=== PATIENT | female | born 1980 | race Caucasian/White ===

== ENCOUNTER 2020-11-08 09:48 | Emergency (ER) | payer OTHER, SELFPAY ==
[2020-11-08] VITALS (20 sets, daily range): BP systolic 101–124; BP diastolic 58–91; PULSE 67–95; RESP 13–24; TEMP 36.2; O2SAT 94–100
--- NOTE | ~2020-11-08 | CT_ITS ---
EXAMINATION: CT brain wo con DATE: 11/08/2020 10:20 INDICATION: Altered mental status TECHNIQUE: Computed tomography (CT) of the head was performed without intravenous contrast. The mA wa s adjusted according to patient size. Iterative reconstruction technique was employed. Exam dose: 60 5.33 mGy-cm total exam DLP. COMPARISON: None FINDINGS: No intracranial mass lesion or hemorrhage or cerebrovascular accident. No midline shift or mass effect. Normal ventricular size. No midline shift or mass effect. No subdural or epidural h ematoma. No skull fracture or bone destruction. IMPRESSION: No significant abnormality Reviewed, dictated and finalized at [facility]. Reviewed, dictated and finalized at location [facility]. CAPTURE SPECIALIST IMPRESSION: No significant abnormality
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
--- NOTE | 2020-11-08 10:05 | PC.NURSE ---
Pt unresponsive to all stimuli, preparing to give ammonia inhalant, pt begins wretching, pt rolled to side, mask removed. Pt had emesis large amt of brown liquid. Smells stongly of vanilla. Pt apologizes, continues to vomit. Suction prn. Zofran given IVP and fluids initiated. Pt states is allergic to a medication, but unable to understand her due to slurred speech. Shakes head that is not allergic to zofran prior to giving. Pt to radiology for CT.
[2020-11-08] MEDS: ONDANSETRON INJ 4 MG/2 ML VIAL (10:09)
[2020-11-08] MEDS: SODIUM CHLORIDE 0.9% IV 1,000 ML 999 ML IV CONT (10:09)
--- NOTE | 2020-11-08 10:35 | PC.NURSE ---
Per cardiac tech pt had emesis in CT and again upon returning to room and getting blood drawn. Pt is again unresponsive.
[2020-11-08 10:45] LABS: Basophils Absolute Auto 0.1 K/mm3 (0.0-0.1); Basophils Percent Auto 0.9 % (0.2-1.2); Eosinophils Absolute Auto 0.1 K/mm3 (0-0.3); Eosinophils Percent Auto 0.8 % (0-4.4); Hematocrit 37.7 % (37.0-47.0); Hemoglobin 12.6 g/dL (12.0-15.0); Immature Granulocyte Absolute 0.15 K/mm3 (0.00-0.031); Lymphocytes Absolute Auto 3.49 K/mm3 (0.9-3.2); Lymphocytes Percent Auto 45.6 % (18.3-44.2); Mean Corpuscular HGB Conc 33.4 g/dl (32-36); Mean Corpuscular Hemoglobin 33.6 pg (26-34); Mean Corpuscular Volume 100.5 fl (80-100); Mean Platelet Volume 9.4 fl (7.4-10.4); Monocytes Absolute Auto 0.4 K/mm3 (0.1-0.6); Monocytes Percent Auto 5.5 % (2.6-8.5); Neutrophils Absolute Auto 3.5 K/mm3 (1.3-6.7); Neutrophils Percent Auto 45.2 % (45.5-73.1); Platelet Count Result 328 k/mm3 (150-375); Red Blood Count 3.75 M/mm3 (4.2-5.4); Red Cell Distribution Width 12.5 % (11.5-14.5); White Blood Count 7.7 K/mm3 (4.5-10.0)
[2020-11-08 10:51] LABS: Add Urine Microscopic? YES; Appearance Urine Clear (Clear); Bilirubin Urine Negative (Negative); Blood Urine 1+ (Negative); Color Urine Yellow (Yellow); Glucose Urine UA Negative (Negative); Hyaline Casts Urine 20-29 /lpf; Ketones Urine Trace mg/dL (Negative); Leukocyte Esterase Ur Negative LEU/UL (Negative); Mucus Urine Few /lpf; Nitrate Urine Negative (Negative); Protein Urine 1+ mg/dL (Negative); RBC Urine 0-2 /hpf (0-2); Specific Grav Ur 1.029 (1.001-1.035); Squamous Epithelial Cell Urine Rare /hpf (Few); Urobilinogen Urine Negative mg/dL (<2.0); WBC Urine 0-3 /hpf
[2020-11-08 11:06] LABS: Acetaminophen < 10 ug/mL (10-30); Salicylate < 1.0 mg/dL (2-20)
[2020-11-08 11:07] LABS: Amphetamine Screen Urine Negative (Negative); Barbiturate Screen Urine Negative (Negative); Benzodiazepines Screen Urine Negative (Negative); Cannabinoid Screen Urine Negative (Negative); Cocaine Screen Urine Negative (Negative); Methadone Screen Urine Negative (Negative); Opiate Screen Urine Negative (Negative); Phencyclidine Screen Urine Negative (Negative)
--- NOTE | 2020-11-08 11:20 | PC.NURSE ---
Addendum entered by Rodney Stanton RN 11/08/20 11:49: Pt states that she quit taking all of her medications for depression due to being . States thinks she's been off of them x8 months at least. Original Note: Note snoring respirations, and pt does not wake up to name. Attempt to place #22F nasal trumpet to left nare, and pt awakens to pull it out. Pt is now oriented to name and place, and speech is clearer at this time. Pt asked if she is suicidal, states Oh GOD no and denies suicidal ideations as well. States she is definitely depressed and that she has a problem with alcohol, but that she doesn't drink every day. Pt is not forthcoming on what she took today; however, when asked if all she drank was the vanilla extract, states yes. States that she is 3 wks , and feels that she needs help . Pt intermittently tearful.
[2020-11-08 11:23] LABS: Alanine Aminotransferase 15 U/L (4-35); Albumin Level 3.7 g/dL (3.5-5.1); Alkaline Phosphatase 70 U/L (38-126); Anion Gap 10 mmol/L (8-16); Aspartate Amino Transferase 26 U/L (14-36); Bilirubin,Total 0.3 mg/dL (0.2-1.3); Blood Urea Nitrogen 12 mg/dL (7-17); Calcium 8.1 mg/dL (8.4-10.2); Carbon Dioxide 22 mmol/L (22-30); Chloride 113 mmol/L (98-107); Estimated CRCL calculation 88 ml/min; Estimated Glomerular Filt Rate > 60; Glucose 115 mg/dL (65-105); Potassium 3.7 mmol/L (3.4-5.0); Sodium 145 mmol/L (137-145)
[2020-11-08 11:43] LABS: Ethanol 401 mg/dL (<10)
--- NOTE | 2020-11-08 14:14 | PC.NURSE ---
~1221 RECIEVED PHONE CALL FROM DREA LEW STATING HE IS HER SIGNIFICANT OTHER AND INQUIRING TO HOW SHE WAS DOING.PROPELLER [employer]IVEN [employer]PLANE MECHANIC INFORMED HIM SHE SLEEPING. ASKED IF PT HAS ANY MEDICAL HISTORY, DREA STATED SHE HAD A HISTORY OF BIPOLAR DISORDER AND ASSOCIATIVE DISORDER. THIS PROPELLER DRIVEN AIRPLANE MECHANIC INQUIRED IF HE HAND ANY CONCERNS OF PT WANTING TO HARM HERSELF OR IF HE WAS AWARE IF SHE HAD TRIED TO HARM SELF IN THE PAST. DREA STATED HE THOUGHT SHE WAS FINE WHEN SHE LEFT THE HOUSE THIS AM BUT SHE HAS ATTEMPTED TO HANG HERSELF IN THE PAST.
--- NOTE | 2020-11-08 14:20 | PC.NURSE ---
Pt calls out I'm ready to go! . Dr. Campo made aware. States he's not willing to release due to conversation he had with s.o. that reports that pt is possibly suicidal. Pt continues to deny suicidal ideations. States I don't give a FUCK what you say, I'm leaving this place . Pt pulls off monitor leads. Cords removed from room. Dr. Campo and dalton Ochoa made aware.
[2020-11-08 14:37] LABS: Glucose Point of Care 121 (65-105)
--- NOTE | 2020-11-08 14:37 | PC.NURSE ---
Addendum entered by Rodney Stanton RN 11/08/20 15:51: bedside discussing plan of care and need for reevaluation after the patient blood alcohol is normal. Pt loudly yelling at him and crying intermittently. Original Note: Dr. Camop at
--- NOTE | 2020-11-08 14:37 | PC.NURSE ---
Dr. Campo at bedside discussing plan of care. Pt escaltating in angriness, bargaining with Dr. Campo. This RN explained to patient that if she attempts to leave that we will make her come back.
--- NOTE | 2020-11-08 14:50 | PC.NURSE ---
Pt's room made secure and 1:1 siter observation initiated. Security called to stand by due to pt's threats of attempting to leave the facility.
--- NOTE | 2020-11-08 16:12 | PC.NURSE ---
Pt asleep on stretcher. 1:1 sitter observation continues.
--- NOTE | 2020-11-08 16:35 | PC.NURSE ---
Received a call from patient's mother, requesting update. States this similar thing happened after the of her first child. States has an appointment with her psychiatrist on Wednesday. 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 Dr. Campo updated.
--- NOTE | 2020-11-08 17:58 | PC.NURSE ---
Pt up using phone, conversing with staff. Pt is pleasant at the moment.
[2020-11-08 18:32] LABS: Ethanol 265 mg/dL (<10)
--- NOTE | 2020-11-08 18:37 | PC.NURSE ---
Repeat alcohol level drawn as ordered.
--- NOTE | 2020-11-08 19:06 | PC.NURSE ---
Report to [facility] Corona, to continue care. Pt updated on wait. 1:1 sitter remains.
[2020-11-09 03:46] VITALS: BP 137/87; PULSE 97; RESP 16; O2SAT 97
[2020-11-09] MEDS: ONDANSETRON HCL ODT 4 MG TABLET PO (03:46)
[2020-11-09 04:00] LABS: Ethanol 21 mg/dL (<10)
[2020-11-09 05:40] VITALS: BP 129/88; PULSE 89; RESP 19; TEMP 36.7; O2SAT 99
== END 2020-11-09 05:40 | disposition home or self-care (01) ==
PROVIDERS: Emergency Medicine; Emergency Provider Emergency Medicine
DX: O99.315 Alcohol use complicating the puerperium (principal); F10.129 Alcohol abuse with intoxication, unspecified; Y90.8 Blood alcohol level of 240 mg/100 ml or more; F53.0 Postpartum depression
CPT/HCPCS: 36415; 51701; 70450; 80053; 80307; 81001; 84443; 85025; 96361; 96374; 99284; A9270; J2405; J7030

== ENCOUNTER 2021-05-04 12:01 | Emergency (ER) | payer OTHER, SELFPAY ==
[2021-05-04 12:13] VITALS: BP 113/80; PULSE 113; RESP 16; TEMP 37.1; O2SAT 99
--- NOTE | 2021-05-04 13:03 | ED.BACK ---
HPI - Back Pain/Injury General Chief Complaint: Back Pain/Injury Stated Complaint: back pain Source: patient and RN notes reviewed Limitations: no limitations History of Present Illness HPI Narrative: The patient, previously mostly healthy, presents with low back pain. Patient states she had the quick onset of midline low back pain while leaning over to plug in an outlet. She complains of mild pain is worse with motion, better at rest that radiates somewhat to the left posterior thigh. No bowel?bladder symptoms, hematuria/frequency/urgency/dysuria, abdominal pain, numbness/weakness. Symptoms are mild worse with activity. Related Data Home Medications Medication Instructions Recorded Confirmed Inhaler 05/04/21 Klonopin 05/04/21 norethindrone-e.estradiol-iron tablet 05/04/21 [Aurovela 24 Fe] Allergies Allergy/AdvReac Type Severity Reaction Status Date / Time alprazolam Allergy Unknown Verified 11/08/20 10:48 Review of Systems Review of Systems: Narrative: General/Constitutional: No weight loss,fever Eyes: N0: Redness,discharge Ears/Nose/Throat: No: Epistaxis,ear discharge Respiratory: Denies: Hemoptysis Gastrointestinal: No Vomiting, Bleeding-rectal Skin: No Lumps, eruption Neurologic: No Focal Weakness,Sz Hematologic: Denies: Petechiae/Purpura Psychiatric: No: Suicida ideationl All Other Systems: Reviewed and Negative PMFSH Past Medical History Medical History (Updated 05/04/21 @ 13:07 by Gerard Harvey MD) Bipolar disorder Comments At time of signature, agree with nursing past medical, surgical, social and family history. There is no relevant family history pertinent to the presenting complaint Exam Narrative: Exam Narrative: General Appearance: Well appearing, Well nourished, Conjunctiva clear Mouth/Throat: Normal appearing, Normal lips, Supple Respiratory: Airway patent Abdomen: Soft Musculoskeletal: Normal strength (no footdrop, 5/5 : EH L-FHL, gastroc-AT, no saddle weakness) Spine/Back: Paraspinal muscle tender (with mild decreased range of motion; left posterior superior iliac crest) Skin: Normal color Neurological: A&O x3, CN II-XII intact, Normal reflexes (symmetric, 2+ KJ, trace AJ) Psychiatric: Normal mood Course Vital Signs Vital signs: Vital Signs Temperature 98.8 F 05/04/21 12:13 Pulse Rate 113 H 05/04/21 12:13 Respiratory Rate 16 05/04/21 12:13 Blood Pressure 113/80 05/04/21 12:13 Pulse Oximetry 99 05/04/21 12:13 Temperature 98.8 F 05/04/21 12:13 Pulse Rate 113 H 05/04/21 12:13 Respiratory Rate 16 05/04/21 12:13 Blood Pressure 113/80 05/04/21 12:13 Pulse Oximetry 99 05/04/21 12:13 Discharge Plan Discharge Clinical Impression: Low back strain Qualifiers: Encounter type: initial encounter Qualified Code(s): S39.012A - Strain of muscle, fascia and tendon of lower back, initial encounter Patient Disposition: Home, Self-Care Condition: Stable Instructions: Sciatica (ED) Prescriptions: New prednisone 20 mg tablet 60 mg PO DAILY Qty: 15 RF: 0 acetaminophen-codeine 300-30 mg tablet 1 tablet PO HS PRN (Reason: pain) Qty: 10 RF: 0 tramadol 50 mg tablet 50 - 75 mg PO TID PRN (Reason: pain) Qty: 20 RF: 0 No Action norethindrone-e.estradiol-iron [Aurovela 24 Fe] 1 mg-20 mcg (24)/75 mg (4) tablet RF: 0 Inhaler RF: 0 Klonopin RF: 0 Follow-up/Referrals: UNKNOWN,DOCTOR [Primary Care Provider] -
== END 2021-05-04 13:22 | disposition home or self-care (01) ==
PROVIDERS: Emergency Provider Emergency Medicine
DX: S39.012A Strain of muscle, fascia and tendon of lower back, initial encounter (principal); X50.9XXA Other and unspecified overexertion or strenuous movements or postures, initial encounter; J45.909 Unspecified asthma, uncomplicated
CPT/HCPCS: 99213; G0463

== ENCOUNTER 2021-06-15 09:07 | Emergency (ER) | payer OTHER, SELFPAY ==
[2021-06-15 09:19] VITALS: BP 135/91; PULSE 96; RESP 16; TEMP 36.4; O2SAT 99
--- NOTE | 2021-06-15 09:25 | ED.SKABFB ---
HPI - Skin/Abscess/Foreign Bdy General Chief complaint: Skin/Abscess/Foreign Body Stated complaint: Congestion,Rash on arm Time Seen by Provider: 06/15/21 09:25 Source: patient and RN notes reviewed Mode of arrival: ambulatory Limitations: no limitations History of Present Illness HPI narrative: 40-year-old female who presents to [facility] with complaints of rash to her left arm for the past 2 days which is scattered with some vesicle formation, no drainage noted. Patient also voices some feelings of sinus congestion and states that she had a fever this morning but is afebrile in clinic and has not taken any OTC medications which would decrease fever. Patient reports that she has some nasal congestion also, denies sore throat, ear pain, cough or any difficulty with her breathing.Patient reports that she has been taking some Claritin D for her nasal symptoms. Patient denies working in her yard or any known exposure to poisonous plants, reports that her significant other has had poison [place]ingo recently. MD complaint: rash Location: LUE Related Data Home Medications Medication Instructions Recorded Confirmed Inhaler 05/04/21 Klonopin 05/04/21 norethindrone-e.estradiol-iron tablet 05/04/21 [Aurovela 24 Fe] norethindrone-e.estradiol-iron tablet 06/15/21 [Aurovela 24 Fe] quetiapine 06/15/21 06/15/21 Allergies Allergy/AdvReac Type Severity Reaction Status Date / Time alprazolam Allergy Unknown Verified 11/08/20 10:48 Review of Systems Review of Systems: CONSTITUTIONAL: Reports fever this morning,no chills, or sweats, is afebrile on arrival to clinic. EYES: Denies visual changes, redness, or discharge. ENT: Denies rhinorrhea,reports nasal congestion, no sore throat, or otalgia. CARDIOVASCULAR: Denies chest pain, palpitations, or edema. RESPIRATORY: Denies cough or dyspnea. GASTROINTESTINAL: Denies abdominal pain, nausea, vomiting, or diarrhea. GENITOURINARY: Denies dysuria or hematuria. SKIN: Positive rash to left arm which patient states is burning, some vesicles noted, rash is scattered to left arm with some itching. MUSCULOSKELETAL: Denies back pain, joint pain, or myalgia. NEUROLOGIC: Denies headache, numbness, or weakness. PSYCHIATRIC: Positive anxiety or depression. All systems reviewed & are unremarkable except as noted in HPI and below PMFSH Past Medical History Medical History (Updated 06/17/21 @ 09:38 by Funmilayo Lewis NP) Bipolar disorder COVID-19 Lupus Surgical History Surgical History (Updated 06/15/21 @ 09:45 by Funmilayo Lewis NP) No history of previous surgery Family History Family History (Updated 06/15/21 @ 09:46 by Funmilayo Lewis NP) Grandparent Heart disease Diabetes mellitus Cerebrovascular accident Mother Hypertension Social History Social History (Updated 06/15/21 @ 09:46 by Funmilayo Lewis NP) Smoking packs per day: 0.5 Smoking cigarettes per day: 10.0 Years smoked: 20 Smoking pack-years: 10.00 Smoking status: Current every day smoker Alcohol intake: current Substance use: never Living arrangements: with family Gender identity (if verbalized by the patient): Female Comments At time of signature, agree with nursing past medical, surgical, social and family history. There is no relevant family history pertinent to the presenting complaint Exam Narrative: GENERAL: Well-appearing, well-nourished, and in no acute distress. HEAD: Normocephalic, atraumatic. EYES: PERRLA and EOMI. ENT: Nares light red,clear rhinorrhea no epistaxis. Mucous membranes moist.TM's normal with good light reflex, throat has mild redness with no lesions or exudates, no tonsil enlargement. post nasal drainage noted. NECK: Supple.no lymphadenopathy CHEST: Clear to auscultation. No respiratory distress.SAO2 99% on room air HEART: Regular rate and rhythm. No murmur heard. Normal peripheral pulses. ABDOMEN: Soft, nontender, nondistended, normal active bowel sounds. EXTRE
== END 2021-06-15 09:45 | disposition home or self-care (01) ==
PROVIDERS: Emergency Provider Registered Nurse
DX: L25.9 Unspecified contact dermatitis, unspecified cause (principal); F17.210 Nicotine dependence, cigarettes, uncomplicated; F31.9 Bipolar disorder, unspecified; M32.9 Systemic lupus erythematosus, unspecified; Z86.16 Personal history of COVID-19
CPT/HCPCS: 99213; G0463

== ENCOUNTER 2021-08-17 18:10 | Emergency (ER) | payer OTHER, SELFPAY ==
--- NOTE | ~2021-08-17 | XR_ITS ---
EXAMINATION: XR foot LT min 3V DATE: 08/17/2021 18:29 INDICATION: Left foot injury. TECHNIQUE: 4 views of left foot were obtained. COMPARISON: None. FINDINGS: Bone alignment is normal. No fracture. Joint spaces are well maintained. IMPRESSION: 1. No fracture. Reviewed, dictated and finalized at location [facility]. IMPRESSION: 1. No fracture.
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
[2021-08-17 18:19] VITALS: BP 124/84; PULSE 104; RESP 18; TEMP 36.4; O2SAT 99
== END 2021-08-17 18:46 | disposition home or self-care (01) ==
PROVIDERS: Emergency Provider Nurse Practitioner; PCP Hospitalist
DX: S90.32XA Contusion of left foot, initial encounter (principal); X58.XXXA Exposure to other specified factors, initial encounter; Z86.16 Personal history of COVID-19; F17.210 Nicotine dependence, cigarettes, uncomplicated
CPT/HCPCS: 73630; 99213; G0463

== ENCOUNTER 2022-10-20 09:26 | Emergency (ER) | payer OTHER, SELFPAY ==
[2022-10-20 09:30] VITALS: BP 126/95; PULSE 103; RESP 18; TEMP 36.9; O2SAT 100
--- NOTE | 2022-10-20 09:47 | ED.EAR ---
HPI - Ear Problem General Chief complaint: Ear Stated complaint: Left Ear Irritation Time Seen by Provider: 10/20/22 09:47 Source: patient Mode of arrival: ambulatory Limitations: no limitations History of Present Illness HPI Narrative: 42-year-old female presents with pain to left ear radiating into left jaw for 2-3 days. Reports that lymph nodes to left-sided neck feels sore. Also reports that she has felt fatigued. States she has had itching and pain and ear and is concerned it may be shingles. No rash noted. All systems reviewed and negative except as noted above. Related Data Home Medications Medication Instructions Recorded Confirmed norethindrone 1 mg-ethinyl 1 tablet PO DAILY 05/04/21 10/20/22 estradiol 20 mcg (24)-iron 75 mg (4) tablet (Aurovela 24 Fe) Allergies Allergy/AdvReac Type Severity Reaction Status Date / Time alprazolam Allergy Unknown Verified 10/20/22 09:37 Review of Systems Review of Systems: CONSTITUTIONAL: Denies fever, chills, or sweats. EYES: Denies visual changes, redness, or discharge. ENT: Denies rhinorrhea, congestion, sore throat . Reports postnasal drainage and left ear pain. CARDIOVASCULAR: Denies chest pain, palpitations, or edema. RESPIRATORY: Denies cough or dyspnea. GASTROINTESTINAL: Denies abdominal pain, nausea, vomiting, or diarrhea. GENITOURINARY: Denies dysuria or hematuria. SKIN: Denies rash or itching. MUSCULOSKELETAL: Denies back pain, joint pain, or myalgia. NEUROLOGIC: Denies headache, numbness, or weakness. PSYCHIATRIC: Denies anxiety or depression. All other systems reviewed are negative, except as documented in HPI. [facility] Past Medical History Medical History Bipolar disorder COVID-19 Lupus Surgical History Surgical History No history of previous surgery Family History Family History Grandparent Heart disease Diabetes mellitus Cerebrovascular accident Mother Hypertension Social History Social History Smoking packs per day: 0.5 Smoking cigarettes per day: 10.0 Years smoked: 20 Smoking pack-years: 10.00 Smoking status: Current every day smoker Alcohol intake: current Substance use: never Gender identity (if verbalized by the patient): Female Comments At time of signature, agree with nursing past medical, surgical, social and family history. There is no relevant family history pertinent to the presenting complaint. Exam Narrative: GENERAL: This is a well-nourished, well-developed patient, in no apparent distress. HEAD: normocephalic, atraumatic. EYES: PERRL. Sclera clear/white. Vision is grossly intact. EARS: External ears normal, auditory canals clear and without drainage . Right TM is normal. Left TM is bulging, Yellow fluid. NOSE: External nose normal with no obvious nasal discharge, nares without redness, no rhinorrhea. THROAT: Mucous membranes moist, posterior pharynx clear. NECK: Neck supple, non-tender without lymphadenopathy, masses or thyromegaly. CARDIOVASCULAR: Regular rate and rhythm without murmurs, gallops, or rubs. RESPIRATORY: Clear to auscultation. Breath sounds equal bilaterally. No wheezes, rales, or rhonchi. SKIN: warm, Dry, intact with no suspicious lesions or rash, good texture and turgor. NEURO: awake, alert, and oriented to person, place and time. There were no obvious focal neurologic abnormalities. EXTREMITIES: No joint tenderness, effusion, or edema noted. Course Course Level of Care: Express Care Visit Vital Signs Vital signs: Vital Signs Temperature 36.9 C 10/20/22 09:30 Pulse Rate 103 H 10/20/22 09:30 Respiratory Rate 18 10/20/22 09:30 Blood Pressure 126/95 H 10/20/22 09:30 Pulse Oximetry 100 10/20/22 09:30 Oxygen Delivery Room Air 10/20/22 09:30
== END 2022-10-20 09:56 | disposition home or self-care (01) ==
PROVIDERS: Emergency Provider Nurse Practitioner Family; PCP Hospitalist
DX: H65.02 Acute serous otitis media, left ear (principal); F17.210 Nicotine dependence, cigarettes, uncomplicated
CPT/HCPCS: 99213; G0463

== ENCOUNTER 2022-12-18 18:58 | Emergency (ER) | payer OTHER, SELFPAY ==
[2022-12-18 19:07] VITALS: BP 135/84; PULSE 109; RESP 14; TEMP 36.8; O2SAT 98
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
== END 2022-12-18 19:43 | disposition home or self-care (01) ==
PROVIDERS: Emergency Provider Nurse Practitioner
DX: M54.41 Lumbago with sciatica, right side (principal); F17.210 Nicotine dependence, cigarettes, uncomplicated; Z86.16 Personal history of COVID-19
CPT/HCPCS: 99213; G0463

== ENCOUNTER 2023-05-11 09:34 | Emergency (ER) | payer OTHER, SELFPAY ==
[2023-05-11 09:40] VITALS: BP 121/76; PULSE 88; RESP 16; TEMP 37.4; O2SAT 99
--- NOTE | 2023-05-11 09:55 | ED.BACK ---
HPI - Back Pain/Injury General Chief Complaint: Back Pain/Injury Stated Complaint: Back Pain Time Seen by Provider: 05/11/23 09:55 Source: patient, RN notes reviewed and old records reviewed Mode of arrival: ambulatory Limitations: no limitations History of Present Illness HPI Narrative: 42-year-old female presents to the [facility] with complaints of low back pain. Has a history of chronic back pain. States that she called Dr. Us and was told to go to the Urgent care Patient reports last night she had excruciating pain in her low back. States that she sat on the floor, 1 time loss of bladder, able to maintain at currently and since the 1 episode. Denies any numbness and tingling in extremities currently. Walks with a normal gait. States that she is supposed to see Neurosurgery as well as pain management but has not set up appointments yeah Denies any fevers. Denies abdominal pain. Denies urinary symptoms Related Data Home Medications Medication Instructions Recorded Confirmed norethindrone 1 mg-ethinyl 1 tablet PO DAILY 05/04/21 05/11/23 estradiol 20 mcg (24)-iron 75 mg (4) tablet (Aurovela 24 Fe) Allergies Allergy/AdvReac Type Severity Reaction Status Date / Time alprazolam Allergy Unknown Verified 05/11/23 09:51 naproxen Allergy Wheezing Verified 05/11/23 09:51 Review of Systems Review of Systems: All systems reviewed & are unremarkable except as noted in HPI and below Constitutional: Constitutional: Reports no additional constitutional complaints Eyes: Eyes: Reports no additional eye complaints ENT: Reports system reviewed and no additional complaints, except as documented Cardiovascular: Cardiovascular: Reports no additional cardiovascular complaints, Denies chest pain and Denies dyspnea Respiratory: Respiratory: Reports no additional respiratory complaints, Denies chest congestion, Denies cough and Denies dyspnea Gastrointestinal: Gastrointestinal: Reports no additional gastrointestinal complaints, Denies abdominal pain, Denies nausea and Denies vomiting Genitourinary: Genitourinary: Reports no additional female genitourinary complaints Musculoskeletal: Musculoskeletal: Reports as per HPI, Denies abnormal gait, Reports back pain, Denies myalgias, Denies muscle weakness, Denies neck pain, Denies numbness and Denies radiating pain into limb Integumentary/Breasts: Skin/Breast: Reports system reviewed and no additional complaints, except as docu Neurologic: Reports system reviewed and no additional complaints, except as documented Psychiatric: Psychiatric: Reports no additional psychiatric complaints Allergic/Immunologic: Allergic/Immunologic: Reports no additional allergic/immunologic complaints PMFSH Past Medical History Medical History Bipolar disorder COVID-19 Lupus Surgical History Surgical History No history of previous surgery Family History Family History Grandparent Heart disease Diabetes mellitus Cerebrovascular accident Mother Hypertension Social History Social History Smoking packs per day: 0.5 Smoking cigarettes per day: 10.0 Years smoked: 20 Smoking pack-years: 10.00 Smoking status: Current every day smoker Alcohol intake: current Substance use: never Living arrangements: with family Gender identity (if verbalized by the patient): Female Comments At the time of my signature, I reviewed and agree with the nursing past medical, surgical, social, and family history. There is no relevant family history pertinent to the patient complaint. Exam Const: General: cooperative, healthy appearing, comfortable, no acute distress, well developed, alert and well nourished Nutritional Appearance: well nourished Orientation/conscio
== END 2023-05-11 10:17 | disposition home or self-care (01) ==
PROVIDERS: Emergency Provider Nurse Practitioner; PCP Hospitalist
DX: M54.50 Low back pain, unspecified (principal); G89.29 Other chronic pain; M32.9 Systemic lupus erythematosus, unspecified; F17.210 Nicotine dependence, cigarettes, uncomplicated
CPT/HCPCS: 99213; G0463

== ENCOUNTER 2023-10-03 11:03 | Emergency (ER) | payer OTHER, SELFPAY ==
--- NOTE | ~2023-10-03 | XR_ITS ---
EXAMINATION: XR elbow LT min 3V DATE: 10/03/2023 11:41 INDICATION: Posterolateral left elbow pain post injury TECHNIQUE: Anteroposterior, two oblique and lateral views of the left elbow were obtained. COMPARISON: None. FINDINGS: Alignment is normal. No fracture or joint effusion. Joint spaces are normal. Prominent soft tissue sw elling posterior to the proximal left forearm. IMPRESSION: 1. No osseous abnormality. Reviewed, dictated and finalized at location A. [employer] IMPRESSION: 1. No osseous abnormality.
[2023-10-03 11:11] VITALS: BP 135/72; PULSE 68; RESP 16; TEMP 36.9; O2SAT 98
--- NOTE | 2023-10-03 12:09 | ED.UPPEXIN ---
HPI - Extremity Injury (Upper) General Chief Complaint: Extremity Injury, Upper Stated Complaint: left arm injury Time Seen by Provider: 10/03/23 12:08 Source: patient Mode of arrival: ambulatory Limitations: no limitations History of Present Illness HPI narrative: This is a 43-year-old [id number] female presents with pain at her left elbow. Two nights ago she was walking her puppy dog on a leash when it started and she struck/slammed her elbow in between the door. She has been using some ibuprofen for analgesia. Her last dose of Tylenol was at 6:00 p.m. and her last dose of ibuprofen was yesterday 9:00 p.m.. She denies any paresthesias. She has had pain as well as swelling and bruising of the extremity but denies any paresthesias. She did apply ice yesterday. Related Data Home Medications Medication Instructions Recorded Confirmed norethindrone 1 mg-ethinyl 1 tablet PO DAILY 05/04/21 05/11/23 estradiol 20 mcg (24)-iron 75 mg (4) tablet (Aurovela 24 Fe) Allergies Allergy/AdvReac Type Severity Reaction Status Date / Time alprazolam Allergy Unknown Verified 10/03/23 12:12 naproxen Allergy Wheezing Verified 10/03/23 12:12 [facility] Past Medical History Medical History Bipolar disorder COVID-19 Lupus Surgical History Surgical History No history of previous surgery Family History Family History Grandparent Heart disease Diabetes mellitus Cerebrovascular accident Mother Hypertension Social History Social History Smoking packs per day: 0.5 Smoking cigarettes per day: 10.0 Years smoked: 20 Smoking pack-years: 10.00 Smoking status: Current every day smoker Alcohol intake: current Substance use: never Living arrangements: with family Gender identity (if verbalized by the patient): Female Exam Narrative: GENERAL: Well-appearing, well-nourished, and in no acute distress. HEAD: Normocephalic, atraumatic. EYES: Nonicteric, noninjected ENT: Nares clear, no rhinorrhea or epistaxis. NECK: Supple. CHEST: Speaking in full sentences. No respiratory distress. HEART: Regular rate and rhythm. Normal peripheral pulse at left radial. ABDOMEN: Soft,, nondistended, EXTREMITIES: Normal range of motion. 5/5 strength with elbow flexion/extension bilaterally. No tenderness to palpation of elbow joint which appears anatomically positioned and without bony crepitus. 5/5 strength bilaterally with finger abduction. Sensation intact throughout elbow/forearm/hand. Swelling/edema throughout left elbow and proximal forearm. There is ecchymosis along distal humerus. SKIN: Warm, dry, no rash. NEURO: No focal deficits. Alert and oriented x3. PSYCH: Normal mood and affect. Course Vital Signs Vital signs: Vital Signs Temperature 98.4 F 10/03/23 11:11 Pulse Rate 68 10/03/23 11:11 Respiratory Rate 16 10/03/23 11:11 Blood Pressure 135/72 10/03/23 11:11 Pulse Oximetry 98 10/03/23 11:11 Temperature 98.4 F 10/03/23 11:11 Pulse Rate 68 10/03/23 11:11 Respiratory Rate 16 10/03/23 11:11 Blood Pressure 135/72 10/03/23 11:11 Pulse Oximetry 98 10/03/23 11:11 MDM - Extremity Injury (Upper) MDM Narrative Medical decision making narrative: Patient presents pain and swelling in her left elbow and forearms 2 days after stressing in between a door while walking her dog. She is using ibuprofen and Tylenol for pain. Vital signs are within normal limits. X-ray without fracture dislocation patient has reassuring physical exam she is neurovascularly intact although there is edema and ecchymosis. Given the degree of edema, I did utilize point her ultrasound but there is not a arabella localization of edema at the elbow bursa. Patient given an
[2023-10-03] MEDS: HYDROcodone/acetaminophen (*CRX) 5-325 MG TABLET 1 TAB PO (12:47)
== END 2023-10-03 12:50 | disposition home or self-care (01) ==
LOC: ANHED 12:34
PROVIDERS: Emergency Provider Student in an Organized Health Care Education/Training Program; PCP Hospitalist
DX: S50.02XA Contusion of left elbow, initial encounter (principal); F17.210 Nicotine dependence, cigarettes, uncomplicated; Z86.16 Personal history of COVID-19; W22.8XXA Striking against or struck by other objects, initial encounter; Y93.K1 Activity, walking an animal
CPT/HCPCS: 73080; 99283; A9270

== ENCOUNTER 2024-01-17 23:15 | Emergency (ER) | payer OTHER, SELFPAY ==
--- NOTE | ~2024-01-17 | CT_ITS ---
CT of the Abdomen and Pelvis: Indication: Abdominal pain Technique: 2.5 mm axial scans were obtained through the abdomen and pelvis following intravenous adm inistration of 100 cc of Omnipaque 350. Dose reduction technique was used on this scan by utilizing a utomated exposure control and iterative reconstruction technique. The dose-length product (DLP) was 2 06.85 mGy-cm. Findings: Scans through the lung bases are unremarkable. The liver, spleen, pancreas, gallbladder, adrenals and kidneys are within normal limits. No evidence of aortic aneurysm. No lymphadenopathy. No bowel obstruction or bowel wall thickening. There is no evidence to suggest acute appendicitis. Images through the pelvis were performed. Urinary bladder unremarkable. No adnexal mass seen. No asci mckenzie. Impression: No significant abnormalities seen. Reviewed, dictated and finalized at [facility]. Impression: No significant abnormalities seen.
[2024-01-17 23:30] VITALS: BP 134/75; PULSE 91; RESP 15; TEMP 37; O2SAT 100
[2024-01-18] MEDS: methylPREDNISolone SOD SUCC 125 MG VIAL IV PUSH (01:33)
[2024-01-18] MEDS: SODIUM CHLORIDE 0.9% IV 1,000 ML 999 ML IV CONT (01:33)
[2024-01-18] MEDS: MORPHINE SULFATE (*CRX) 4 MG/ML INJ 2 MG IV PUSH (01:34)
[2024-01-18 01:47] LABS: Basophils Absolute Auto 0.1 K/mm3 (0.0-0.1); Basophils Percent Auto 0.7 % (0.2-1.2); Eosinophils Percent Auto 0.4 % (0-4.4); Hematocrit 42.2 % (37.0-47.0); Hemoglobin 14.2 g/dL (12.0-15.0); Immature Granulocyte Absolute 0.02 K/mm3 (0.00-0.031); Immature Granulocyte Percent A 0.3 % (0-0.5); Lymphocytes Absolute Auto 3.64 K/mm3 (0.9-3.2); Mean Corpuscular HGB Conc 33.6 g/dl (32-36); Mean Corpuscular Hemoglobin 32.4 pg (26-34); Mean Corpuscular Volume 96.3 fl (80-100); Mean Platelet Volume 9.6 fl (7.4-10.4); Monocytes Absolute Auto 0.3 K/mm3 (0.1-0.6); Neutrophils Absolute Auto 3.4 K/mm3 (1.3-6.7); Neutrophils Percent Auto 45.6 % (45.5-73.1); Platelet Count Result 302 k/mm3 (150-375); Red Blood Count 4.38 M/mm3 (4.2-5.4); Red Cell Distribution Width 12.9 % (11.5-14.5); White Blood Count 7.4 K/mm3 (4.5-10.0)
[2024-01-18 02:00] LABS: Appearance Urine Clear (Clear); Bacteria Urine None Seen /hpf; Bilirubin Urine Negative (Negative); Blood Urine Trace (Negative); Color Urine Yellow (Yellow); Glucose Urine UA Negative (Negative); Ketones Urine Negative (Negative); Leukocyte Esterase Ur Negative LEU/UL (Negative); Nitrate Urine Negative (Negative); Non Pathogenic Casts 0-2; Protein Urine Negative (Negative); RBC Urine 0-2 /hpf (0-2); Specific Grav Ur 1.006 (1.001-1.035); Squamous Epithelial Cell Urine None Seen /hpf (Few); Urobilinogen Urine 0.2 mg/dL (<2.0); WBC Urine 0-5 /hpf (0-3); pH Urine 5.5 (5.0-9.0)
[2024-01-18 02:01] LABS: Alanine Aminotransferase 15 U/L (6-35); Albumin Level 4.8 g/dL (3.5-5.1); Alkaline Phosphatase 51 U/L (38-126); Anion Gap 10 mmol/L (8-16); Aspartate Amino Transferase 24 U/L (14-36); Bilirubin,Total 0.3 mg/dL (0.2-1.3); Blood Urea Nitrogen 6 mg/dL (7-17); Calcium 9.8 mg/dL (8.4-10.2); Carbon Dioxide 25 mmol/L (22-30); Chloride 109 mmol/L (98-107); Estimated CRCL calculation 80 ml/min; Estimated Glomerular Filt Rate > 60; Glucose 97 mg/dL (65-110); Potassium 3.7 mmol/L (3.4-5.0); Sodium 144 mmol/L (137-145)
[2024-01-18 02:02] LABS: Add Urine Microscopic? YES; Lactic Acid Reflex 1.6 mmol/L (0.7-2.0)
[2024-01-18 02:11] VITALS: BP 130/88; PULSE 94; RESP 16; O2SAT 98
[2024-01-18 02:28] LABS: Procalcitonin < 0.0 ng/mL
--- NOTE | 2024-01-18 03:44 | ED.GENADULT ---
HPI - General Adult General Chief complaint: Unspecified Stated complaint: hip/lower back pain, vag discharge Time Seen by Provider: 01/18/24 01:07 History of Present Illness HPI narrative: Patient 43-year-old female who presents emergency department with chief complaint of back pain hip pain leakage of fluid from the vaginal area patient states that she had an injection due to lumbar radiculopathy and reports that she has been having throbbing aching in bilateral hips the patient states that she has no saddle anesthesia denies footdrop reports that she had some clear fluid leaking out of her vaginal area earlier this evening. Related Data Home Medications Medication Instructions Recorded Confirmed norethindrone 1 mg-ethinyl 1 tablet PO DAILY 05/04/21 05/11/23 estradiol 20 mcg (24)-iron 75 mg (4) tablet (Aurovela 24 Fe) Allergies Allergy/AdvReac Type Severity Reaction Status Date / Time alprazolam Allergy Unknown Verified 10/03/23 12:12 naproxen Allergy Wheezing Verified 10/03/23 12:12 Review of Systems Review of Systems: A 10 system review of systems was completed on the patient and is negative except for what is stated in the HPI. Nursing and ancillary documentation was reviewed. [facility] Past Medical History Medical History Bipolar disorder COVID-19 Lupus Surgical History Surgical History No history of previous surgery Family History Family History Grandparent Heart disease Diabetes mellitus Cerebrovascular accident Mother Hypertension Social History Social History Smoking packs per day: 0.5 Smoking cigarettes per day: 10.0 Years smoked: 20 Smoking pack-years: 10.00 Smoking status: Current every day smoker Alcohol intake: current Substance use: never Living arrangements: with family Gender identity (if verbalized by the patient): Female Exam Narrative: GENERAL: Well-appearing, well-nourished, and in no acute distress. HEAD: Normocephalic, atraumatic. EYES: PERRLA and EOMI. ENT: Nares clear, no rhinorrhea or epistaxis. Mucous membranes moist. NECK: Supple. CHEST: Clear to auscultation. No respiratory distress. HEART: Regular rate and rhythm. No murmur heard. Normal peripheral pulses. ABDOMEN: Soft, nontender, nondistended, normal active bowel sounds EXTREMITIES: Normal range of motion. No edema. SKIN: Warm, dry, no rash. NEURO: No focal deficits. Alert and oriented x3. No saddle anesthesia, no footdrop PSYCH: Normal mood and affect. Course Vital Signs Vital signs: Vital Signs Temperature 37.0 C 01/17/24 23:30 Pulse Rate 91 01/17/24 23:30 Respiratory Rate 15 01/17/24 23:30 Blood Pressure 134/75 01/17/24 23:30 Pulse Oximetry 100 01/17/24 23:30 Oxygen Delivery Room Air 01/17/24 23:30 Temperature 37.0 C 01/17/24 23:30 Pulse Rate 94 01/18/24 02:11 Respiratory Rate 16 01/18/24 02:11 Blood Pressure 130/88 01/18/24 02:11 Pulse Oximetry 98 01/18/24 02:11 Oxygen Delivery Room Air 01/17/24 23:30 Medical Decision Making MDM Narrative Medical decision making narrative: Differential diagnosis includes low back pain, fracture, abscess, muscle strain, ureterolithiasis, colitis, diverticulitis, Laboratory studies were obtained on the patient showed a white blood cell count of 7.4 electrolytes were within normal limits procalcitonin is less than 0.0 urinalysis showed no evidence UTI CT scan of the abdomen pelvis showed no acute abnormalities The patient was discharged home to follow-up with her primary care provider Vital Signs Vital Signs: Vital Signs Temperature 37.0 C 01/17/24 23:30 Pulse Rate 91 01/17/24 23:30 Respiratory Rate 15 01/17/24 23:30
== END 2024-01-18 04:35 | disposition home or self-care (01) ==
PROVIDERS: Emergency Provider Emergency Medicine; PCP Hospitalist
DX: M54.50 Low back pain, unspecified (principal); M25.551 Pain in right hip; M32.9 Systemic lupus erythematosus, unspecified; F17.210 Nicotine dependence, cigarettes, uncomplicated; Z86.16 Personal history of COVID-19
CPT/HCPCS: 36415; 74177; 80053; 81025; 83605; 84145; 85025; 96361; 96374; 96375; 99284; J2270; J2930; J7030; Q9967

== ENCOUNTER 2024-05-04 08:14 | Emergency (ER) | payer OTHER, SELFPAY ==
--- NOTE | ~2024-05-04 | XR_ITS ---
EXAMINATION: XR foot RT min 3V DATE: 05/04/2024 09:09 INDICATION: Right foot injury and pain. TECHNIQUE: 4 views of right foot were obtained. COMPARISON: None. FINDINGS: Bone alignment is normal. No fracture. Joint spaces are normal. IMPRESSION: 1. Normal right foot. Reviewed, dictated and finalized at location E. IMPRESSION: 1. Normal right foot.
[2024-05-04 08:36] VITALS: BP 137/97; PULSE 115; RESP 16; TEMP 37.2; O2SAT 98
[2024-05-04 09:02] LABS: Basophils Percent Auto 0.3 % (0.2-1.2); Eosinophils Percent Auto 0.1 % (0-4.4); Hematocrit 39.2 % (37.0-47.0); Hemoglobin 13.5 g/dL (12.0-15.0); Immature Granulocyte Absolute 0.05 K/mm3 (0.00-0.031); Immature Granulocyte Percent A 0.4 % (0-0.5); Lymphocytes Absolute Auto 5.23 K/mm3 (0.9-3.2); Lymphocytes Percent Auto 44.4 % (18.3-44.2); Mean Corpuscular HGB Conc 34.4 g/dl (32-36); Mean Corpuscular Hemoglobin 32.8 pg (26-34); Mean Corpuscular Volume 95.4 fl (80-100); Mean Platelet Volume 9.4 fl (7.4-10.4); Monocytes Absolute Auto 0.6 K/mm3 (0.1-0.6); Monocytes Percent Auto 4.8 % (2.6-8.5); Neutrophils Absolute Auto 5.9 K/mm3 (1.3-6.7); Platelet Count Result 302 k/mm3 (150-375); Red Blood Count 4.11 M/mm3 (4.2-5.4); Red Cell Distribution Width 13.2 % (11.5-14.5); White Blood Count 11.8 K/mm3 (4.5-10.0)
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
[2024-05-04 09:11] LABS: Appearance Urine Clear (Clear); Bacteria Urine Rare /hpf; Bilirubin Urine Negative (Negative); Blood Urine Negative (Negative); Color Urine Yellow (Yellow); Glucose Urine UA Negative (Negative); Ketones Urine Negative (Negative); Leukocyte Esterase Ur Trace LEU/UL (Negative); Nitrate Urine Negative (Negative); Non Pathogenic Casts 0-2; Protein Urine Negative (Negative); Specific Grav Ur 1.012 (1.001-1.035); Squamous Epithelial Cell Urine Few /hpf (Few); Urobilinogen Urine 0.2 mg/dL (<2.0); pH Urine 6.5 (5.0-9.0)
[2024-05-04 09:14] LABS: Alanine Aminotransferase 32 U/L (6-35); Albumin Level 4.5 g/dL (3.5-5.1); Alkaline Phosphatase 53 U/L (38-126); Anion Gap 10 mmol/L (4-12); Aspartate Amino Transferase 37 U/L (14-36); Bilirubin,Total 0.5 mg/dL (0.2-1.3); Blood Urea Nitrogen 9 mg/dL (7-17); Calcium 9.1 mg/dL (8.4-10.2); Carbon Dioxide 28 mmol/L (22-30); Chloride 108 mmol/L (98-107); Estimated CRCL calculation 84 ml/min; Estimated Glomerular Filt Rate > 60; Glucose 98 mg/dL (65-110); Potassium 3.4 mmol/L (3.4-5.0); Sodium 146 mmol/L (137-145)
[2024-05-04 09:39] LABS: Ethanol 371 mg/dL (<10)
[2024-05-04 09:39] LABS: Influenza A QL RT-PCR Negative (Negative); Influenza B QL RT-PCR Negative (Negative); RSV RNA, RT-PCR Negative (Negative); SARS-CoV-2 RNA PCR Negative (Negative)
[2024-05-04 10:04] LABS: Amphetamine Screen Urine Negative (Negative); Barbiturate Screen Urine Negative (Negative); Benzodiazepines Screen Urine Negative (Negative); Cannabinoid Screen Urine Positive (Negative); Cocaine Screen Urine Negative (Negative); Methadone Screen Urine Negative (Negative); Opiate Screen Urine Negative (Negative); Phencyclidine Screen Urine Negative (Negative)
[2024-05-04 10:05] LABS: Add Urine Microscopic? YES
--- NOTE | 2024-05-04 10:25 | PC.NURSE ---
when doing my initial assessment pt had denied any drug or alcohol use. pt's ETOH level came back at 371. changed the [place] scale to unable to perform due to under the influence of alcohol. per Dr. Guzman and ED clinic charge nurse, sitter not needed at this time. pt sleeping in stretcher comfortably with equal chest rise and fall. no requests at this time.
--- NOTE | 2024-05-04 13:45 | PC.NURSE ---
checked in on pt to see if she needed anything. pt states yeah I want to know what is going on. explained to pt that her ETOH levels were high and that we have to wait for them to be below 80 before crisis will come to evaluate pt. offered pt something to eat and drink. pt declined and states she just wants to leave. gre instructor and EDP made aware.
--- NOTE | 2024-05-04 14:06 | PC.NURSE ---
Dr. Guzman at bedside speaking with pt and explaining our process. pt verbalized understanding. asked pt again if she would like anything to eat or drink. pt states she would just like ice water and nothing to eat right now. gave pt ice water. no other requests at this time.
--- NOTE | 2024-05-04 17:24 | PC.NURSE ---
ordered pt safety dinner tray.
[2024-05-04 18:22] VITALS: BP 126/79; PULSE 91; RESP 16; TEMP 37; O2SAT 99
[2024-05-04 21:19] LABS: Ethanol 98 mg/dL (<10)
--- NOTE | 2024-05-04 23:42 | PC.NURSE ---
Decision made at this time for pt to be voluntarily placed in inpatient.
[2024-05-05 03:05] VITALS: BP 135/92; PULSE 80; RESP 12; TEMP 36.6; O2SAT 100
[2024-05-05] MEDS: ONDANSETRON HCL ODT 4 MG TABLET PO (04:44)
--- NOTE | 2024-05-05 05:36 | PC.NURSE ---
Pt has been accepted at [facility] at this time. Accepting Doctor Dr. Garcia. Nurse report given to Marcus IBARRA @[id number] Transport set for 10am.
[2024-05-05 07:15] VITALS: BP 128/80; PULSE 79; RESP 20; TEMP 36.4; O2SAT 100
--- NOTE | 2024-05-05 09:45 | PC.NURSE ---
Pt refused breakfast.
[2024-05-05 12:56] VITALS: BP 118/76; PULSE 78; RESP 16; O2SAT 100
== END 2024-05-05 12:58 ==
PROVIDERS: Emergency Provider Emergency Medicine; PCP Hospitalist
DX: F31.9 Bipolar disorder, unspecified (principal); R45.851 Suicidal ideations; F10.129 Alcohol abuse with intoxication, unspecified; Y90.8 Blood alcohol level of 240 mg/100 ml or more; S99.921A Unspecified injury of right foot, initial encounter; Z11.52 Encounter for screening for COVID-19; M32.9 Systemic lupus erythematosus, unspecified; F44.81 Dissociative identity disorder; F17.210 Nicotine dependence, cigarettes, uncomplicated; Z86.16 Personal history of COVID-19; W23.0XXA Caught, crushed, jammed, or pinched between moving objects, initial encounter
CPT/HCPCS: 36415; 73630; 80053; 80307; 81001; 81025; 84443; 85025; 87081; 87086; 87088; 87637; 99285; A9270

== ENCOUNTER 2024-11-15 11:08 | Emergency (ER) | payer OTHER, SELFPAY ==
--- NOTE | ~2024-11-15 | US_ITS ---
US pelvic complete w TV Ordering provider: Marylou Gonzalez History: . RLQ abd pain . Comparison: None. Technique: Transabdominal and endovaginal ultrasound of the pelvis (Doppler ultrasound interrogation techniques used as needed for this exam.) FINDINGS: CERVIX: Nabothian cyst measuring 0.5 x 0.5 x 0.4 cm.. UTERUS: Measures 8.5x 3.3x 5.7 cm in length which is within normal limits and is anteverted. No myom etrial masses. Echogenic foci in the lower uterine segment measuring 0.2 x 0.1 cm. ENDOMETRIUM: Normal in thickness measuring 7 mm. (Note: the premenopausal endometrium may measure up to 16 mm when in the secretory phase.) No endometrial masses, cysts or fluid. CUL DE SAC: No free fluid. RIGHT OVARY: Not visualized. LEFT OVARY: Normal in size measuring 1.7x 1.6x 1.4 cm. Normal echotexture. Doppler vascular flow pres ent. Cystic areas seen measuring 0.9 x 0.8 x 0.9 cm ADNEXA: Normal. No mass. IMPRESSION: Nabothian cysts in the cervix. Echogenic foci in the lower uterine segment most likely calcification. Left ovarian follicle. Otherwise, normal pelvic ultrasound. Reviewed, dictated and finalized at location A. ENT MINISTRIES DIRECTOR IMPRESSION: Nabothian cysts in the cervix. Echogenic foci in the lower uterine segment most likely calcification. Left ovarian follicle. Otherwise, normal pelvic ultrasou nd.
--- NOTE | ~2024-11-15 | CT_ITS ---
EXAMINATION: CT abdomen pelvis w con DATE: 11/15/2024 14:12 INDICATION: Right lower quadrant abdominal pain. TECHNIQUE: Computed tomography (CT) of the abdomen and pelvis was performed with 100 mL Omnipaque-350 intravenous contrast. Automated exposure control and iterative reconstruction technique were employe d. The dose-length product was 194.04 mGy-cm. COMPARISON: 01/18/2024 FINDINGS: Lung bases are clear. Heart size normal. No pericardial or pleural effusion. Liver, gallbladder, sple en, pancreas, bilateral adrenal glands and kidneys are normal. There is fluid throughout the small shan wel and proximal colon consistent with diarrhea. No abnormal wall thickening or obstruction. Normal a ppendix. Bladder is normal. Anteverted uterus and right adnexa are unremarkable. 1.2 cm left ovarian follicle. No free intraperitoneal gas or fluid. No pathologically enlarged abdominal or pelvic lympha denopathy. Mild likely physiologic anterior wedging at L1. IMPRESSION: 1. Fluid in the small bowel and proximal colon consistent with nonspecific diarrhea. No other acute i ntra-abdominal/pelvic process. Specifically the appendix is normal. Reviewed, dictated and finalized at location B. ENING SPECIALIST IMPRESSION: 1. Fluid in the small bowel and proximal colon consistent with nonspecific diar jaja. No other acute intra-abdominal/pelvic process. Specifically the appendix is normal.
[2024-11-15 11:22] VITALS: BP 121/73; PULSE 90; RESP 18; TEMP 36.4; O2SAT 98
[2024-11-15 11:51] LABS: BEDSIDEPREGUCG Negative (Negative)
[2024-11-15 12:00] LABS: Basophils Absolute Auto 0.1 K/mm3 (0.0-0.1); Basophils Percent Auto 0.8 % (0.2-1.2); Eosinophils Percent Auto 0.4 % (0-4.4); Hematocrit 40.2 % (37.0-47.0); Hemoglobin 14.3 g/dL (12.0-15.0); Immature Granulocyte Absolute 0.02 K/mm3 (0.00-0.031); Immature Granulocyte Percent A 0.3 % (0-0.5); Lymphocytes Absolute Auto 2.95 K/mm3 (0.9-3.2); Lymphocytes Percent Auto 37.8 % (18.3-44.2); Mean Corpuscular HGB Conc 35.6 g/dl (32-36); Mean Corpuscular Hemoglobin 34.2 pg (26-34); Mean Corpuscular Volume 96.2 fl (80-100); Mean Platelet Volume 9.8 fl (7.4-10.4); Monocytes Absolute Auto 0.5 K/mm3 (0.1-0.6); Monocytes Percent Auto 5.8 % (2.6-8.5); Neutrophils Absolute Auto 4.3 K/mm3 (1.3-6.7); Neutrophils Percent Auto 54.9 % (45.5-73.1); Platelet Count Result 293 k/mm3 (150-375); Red Blood Count 4.18 M/mm3 (4.2-5.4); Red Cell Distribution Width 13.2 % (11.5-14.5); White Blood Count 7.8 K/mm3 (4.5-10.0)
[2024-11-15 12:03] LABS: Add Urine Microscopic? YES; Appearance Urine Cloudy (Clear); Bacteria Urine 2+ /hpf; Bilirubin Urine Negative (Negative); Blood Urine Trace (Negative); Color Urine Yellow (Yellow); Glucose Urine UA Negative (Negative); Ketones Urine Negative (Negative); Leukocyte Esterase Ur Negative LEU/UL (Negative); Need Manual Microscopic Reviewed; Nitrate Urine Negative (Negative); Protein Urine Negative (Negative); Specific Grav Ur 1.014 (1.001-1.035); Squamous Epithelial Cell Urine Few /hpf (Few); Urobilinogen Urine 0.2 mg/dL (<2.0); pH Urine 5.5 (5.0-9.0)
[2024-11-15 12:06] LABS: Alanine Aminotransferase 22 U/L (6-35); Albumin Level 4.7 g/dL (3.5-5.1); Alkaline Phosphatase 52 U/L (38-126); Anion Gap 9 mmol/L (4-12); Aspartate Amino Transferase 26 U/L (14-36); Bilirubin,Total 0.4 mg/dL (0.2-1.3); Blood Urea Nitrogen 7 mg/dL (7-17); Calcium 9.3 mg/dL (8.4-10.2); Carbon Dioxide 28 mmol/L (22-30); Chloride 102 mmol/L (98-107); Estimated CRCL calculation 76 ml/min; Estimated Glomerular Filt Rate > 60; Glucose 87 mg/dL (65-110); Lipase 291 U/L (23-300); Potassium 3.8 mmol/L (3.4-5.0); Sodium 139 mmol/L (137-145)
--- NOTE | 2024-11-15 12:46 | ED_ITS ---
HPI - Abdominal Pain General Chief Complaint: Abdominal Pain <Marylou Gonzalez PA-C - Last Filed: 11/15/24 12:49> Stated Complaint: R sided abd pain <Marylou Gonzalez PA-C - Last Filed: 11/15/24 12:49> Time Seen by Provider: 11/15/24 13:12 <Marylou Gonzalez PA-C - Last Filed: 11/15/24 12:49> Focused HPI: 44 y/o F with a PMHx of ovarian cysts presents to the ED for RLQ abdominal pain x3 days. Pt states pain started when she was doing leg lifts. States the pain has been constant since, describes it as a burning sensation, pressure, and feels like a muscle ripping. States she is concerned she they were ruptured assist or has a hernia. She denies dysuria, hematuria, vomiting. Reports nausea. No prior abdominal surgeries. No flank pain or history of kidney stones. GENERAL: Well-appearing, well-nourished, and in no acute distress. HEAD: Normocephalic, atraumatic. CHEST: Clear to auscultation. ?No respiratory distress. ABD: Tenderness to palpation of the right lower quadrant and suprapubic region. No rebound, guarding or rigidity. No CVA tenderness. HEART: Regular rate and rhythm.? NEURO: ?Alert and oriented x3. Patient screened in triage and initial orders placed.? ?Additional care and disposition to be based upon?diagnostic testing and treatment. <Marylou Gonzalez PA-C - Last Filed: 11/15/24 12:49> History of Present Illness HPI narrative: Agree with HPI. Reports 3 weeks of diarrhea after having a viral illness. <Marcus Giron MD - Last Filed: 11/15/24 15:09> Related Data Home Medications: Home Medications ?Medication ?Instructions ?Recorded ?Confirmed ?Last Taken ?Type norethindrone 1 mg-ethinyl 1 tablet PO DAILY 05/04/21 05/11/23 Unknown History estradiol 20 mcg (24)-iron 75 mg (4) tablet (Aurovela 24 Fe) <DENNY Cardenas Last Filed: 11/15/24 12:49> Allergies/Adverse Reactions: Allergies Allergy/AdvReac Type Severity Reaction Status Date / Time alprazolam Allergy Unknown Verified 05/04/24 08:50 naproxen Allergy Wheezing Verified 05/04/24 08:50 <Marylou Gonzalez PA-C - Last Filed: 11/15/24 12:49> Review of Systems 2 Review of Systems: All systems reviewed & are unremarkable except as noted in HPI and below <Marcus Giron MD - Last Filed: 11/15/24 15:09> Constitutional: Constitutional: Reports no additional constitutional complaints <Marcus Giron MD - Last Filed: 11/15/24 15:09> Cardiovascular: Cardiovascular: Reports no additional cardiovascular complaints <Marcus Giron MD - Last Filed: 11/15/24 15:09> Respiratory: Respiratory: Reports no additional respiratory complaints < Marcus Giron MD - Last Filed: 11/15/24 15:09> Gastrointestinal: Gastrointestinal: Reports no additional gastrointestinal complaints <Marcus Giron MD - Last Filed: 11/15/24 15:09> Musculoskeletal: Musculoskeletal: Reports no additional musculoskeletal complaints <Marcus Giron MD - Last Filed: 11/15/24 15:09> [facility] Past Medical History Medical History: Medical History Bipolar disorder COVID-19 Lupus <Marylou Gonzalez PA-C - Last Filed: 11/15/24 12:49> Surgical History Surgical History: Surgical History No history of previous surgery <Marylou Gonzalez PA-C - Last Filed: 11/15/24 12:49> Family History Family History: Family History Grandparent Heart disease Diabetes mellitus Cerebrovascular accident Mother Hypertension <Marylou Gonzalez PA-C - Last Filed: 11/15/24 12:49> Social History Social History: Social History Smoking packs per day: 0.5 Smoking cigarettes per day: 10.0 Years smoked: 20 Smoking pack-years: 10.00 Smoking status: Current every day smoker Alcohol intake: current Substance use: never Substance use type: marijuana Living arrangements: with family Gender identity (if verbalized by the patient): Female <Marylou Gonzalez PA-C - Last Filed: 11/15/24 12:49> Exam 2 Narrative: GENERAL: Well-appearing, well-nourished, and in no acute distress. HEAD: Normocephalic, atraumatic. ENT: Mucous membranes moist. CHEST: Clear to auscultation. No respiratory distress. HEART: Regular rate and rhythm. Normal peripheral pulses. ABDOMEN: Soft, tender palpation right lower quadrant and very singular region over the ABS, nondistended. EXTREMITIES: Normal range of motion. No edema. SKIN: Warm, dry, no rash. NEURO: Alert and oriented x3. PSYCH: Normal mood and affect. <Marcus Giron MD - Last Filed: 11/15/24 15:09> Course Course Emergency Course: Discussed imaging and lab results. Appropriate for discharge home. Anti- inflammatories and rest recommended. Patient verbalized understanding. Mild UTI patient does report mild urgency and pressure while urinating. <Marcus Giron MD - Last Filed: 11/15/24 15:09> Vital Signs Vital signs: Vital Signs Temperature 97.6 F 11/15/24 11:22 Pulse Rate 90 11/15/24 11:22 Respiratory Rate 18 11/15/24 11:22 Blood Pressure 121/73 11/15/24 11:22 Pulse Oximetry 98 11/15/24 11:22 Oxygen Delivery Room Air 11/15/24 11:22 Temperature 97.6 F 11/15/24 11:22 Pulse Rate 70 11/15/24 14:29 Respiratory Rate 16 11/15/24 14:29 Blood Pressure 107/78 11/15/24 14:29 Pulse Oximetry 99 11/15/24 14:29 Oxygen Delivery Room Air 11/15/24 11:22 <Marylou Gonzalez PA-C - Last Filed: 11/15/24 12:49> Vital Signs Temperature 97.6 F 11/15/24 11:22 Pulse Rate 90 11/15/24 11:22 Respiratory Rate 18 11/15/24 11:22 Blood Pressure 121/73 11/15/24 11:22 Pulse Oximetry 98 11/15/24 11:22 Oxygen Delivery Room Air 11/15/24 11:22 Temperature 97.6 F 11/15/24 11:22 Pulse Rate 70 11/15/24 14:29 Respiratory Rate 16 11/15/24 14:29 Blood Pressure 107/78 11/15/24 14:29 Pulse Oximetry 99 11/15/24 14:29 Oxygen Delivery Room Air 11/15/24 11:22 <Marcus Giron MD - Last Filed: 11/15/24 15:09> MDM - Abdominal Pain Lab Data Result diagrams: 11/15/24 11:39 11/15/24 11:39 <Marylou Gonzalez PA-C - Last Filed: 11/15/24 12:49> Labs: Lab Results 11/15/24 11/15/24 11/15/24 Range/Units 11:39 11:46 11:49 WBC 7.8 (4.5-10.0) K/mm3 RBC 4.18 L (4.2-5.4) M/mm3 Hgb 14.3 (12.0-15.0) g/dL Hct 40.2 (37.0-47.0) % MCV 96.2 (80-100) fl MCH 34.2 H (26-34) pg MCHC 35.6 (32-36) g/dl RDW 13.2 (11.5-14.5) % Plt Count 293 (150-375) k/mm3 MPV 9.8 (7.4-10.4) fl Immature Gran % (Auto) 0.3 (0-0.5) % Neut % (Auto) 54.9 (45.5-73.1) % Lymph % (Auto) 37.8 (18.3-44.2) % [place] % (Auto) 5.8 (2.6-8.5) % Eos % (Auto) 0.4 (0-4.4) % Baso % (Auto) 0.8 (0.2-1.2) % Lymph # (Auto) 2.95 (0.9-3.2) K/mm3 [place] # (Auto) 0.5 (0.1-0.6) K/mm3 Eos # (Auto) 0.0 (0-0.3) K/mm3 Baso # (Auto) 0.1 (0.0-0.1) K/mm3 Abs Immat Gran (auto) 0.02 (0.00-0.031) K/mm3 Absolute Neuts (auto) 4.3 (1.3-6.7) K/mm3 Absolute Nucleated RBC 0.000 (0.0-0.012) K/mm3 Nucleated RBC % 0.0 (0.0-0.2) % Sodium 139 (137-145) mmol/L Potassium 3.8 (3.4-5.0) mmol/L Chloride 102 (98-107) mmol/L Carbon Dioxide 28 (22-30) mmol/L Anion Gap 9 (4-12) mmol/L BUN 7 (7-17) mg/dL Creatinine 0.61 L (0.7-1.0) mg/dL Estim Creat Clear Calc 76 ml/min Estimated GFR > 60 (59 - ) Glucose 87 (65-110) mg/dL Calcium 9.3 (8.4-10.2) mg/dL Total Bilirubin 0.4 (0.2-1.3) mg/dL AST 26 (14-36) U/L ALT 22 (6-35) U/L Alkaline Phosphatase 52 (38-126) U/L Total Protein 7.0 (6.3-8.2) g/dL Albumin 4.7 (3.5-5.1) g/dL Lipase 291 (23-300) U/L Urine Color Yellow (Yellow) Urine Appearance Cloudy H (Clear) Urine pH 5.5 (5.0-9.0) Ur Specific [place] 1.014 (1.001-1.035) Urine Protein Negative (Negative) mg/dL Urine Glucose (UA) Negative (Negative) mg/dL Urine Ketones Negative (Negative) mg/dL Ur Blood (Man) Trace (Negative) Urine Nitrate Negative (Negative) Urine Bilirubin Negative (Negative) Urine Urobilinogen 0.2 (<2.0) mg/dL Add Ur Microanalysis Reviewed Leukocyte Esterase Rfl Negative (Negative) RODOLFO/UL Urine RBC 3-5 H (0-2) /hpf Urine WBC 11-20 H (0-3) /hpf Ur Squamous Epith Cells Few (Few) /hpf Urine Bacteria 2+ H /hpf Urine Casts 3-5 POC Urine HCG, Qual Negative (Negative) <Marylou Gonzalez PA-C - Last Filed: 11/15/24 12:49> Lab Results 11/15/24 11/15/24 11/15/24 Range/Units 11:39 11:46 11:49 WBC 7.8 (4.5-10.0) K/mm3 RBC 4.18 L (4.2-5.4) M/mm3 Hgb 14.3 (12.0-15.0) g/dL Hct 40.2 (37.0-47.0) % MCV 96.2 (80-100) fl MCH 34.2 H (26-34) pg MCHC 35.6 (32-36) g/dl RDW 13.2 (11.5-14.5) % Plt Count 293 (150-375) k/mm3 MPV 9.8 (7.4-10.4) fl Immature Gran % (Auto) 0.3 (0-0.5) % Neut % (Auto) 54.9 (45.5-73.1) % Lymph % (Auto) 37.8 (18.3-44.2) % [place] % (Auto) 5.8 (2.6-8.5) % Eos % (Auto) 0.4 (0-4.4) % Baso % (Auto) 0.8 (0.2-1.2) % Lymph # (Auto) 2.95 (0.9-3.2) K/mm3 [place] # (Auto) 0.5 (0.1-0.6) K/mm3 Eos # (Auto) 0.0 (0-0.3) K/mm3 Baso # (Auto) 0.1 (0.0-0.1) K/mm3 Abs Immat Gran (auto) 0.02 (0.00-0.031) K/mm3 Absolute Neuts (auto) 4.3 (1.3-6.7) K/mm3 Absolute Nucleated RBC 0.000 (0.0-0.012) K/mm3 Nucleated RBC % 0.0 (0.0-0.2) % Sodium 139 (137-145) mmol/L Potassium 3.8 (3.4-5.0) mmol/L Chloride 102 (98-107) mmol/L Carbon Dioxide 28 (22-30) mmol/L Anion Gap 9 (4-12) mmol/L BUN 7 (7-17) mg/dL Creatinine 0.61 L (0.7-1.0) mg/dL Estim Creat Clear Calc 76 ml/min Estimated GFR > 60 (59 - ) Glucose 87 (65-110) mg/dL Calcium 9.3 (8.4-10.2) mg/dL Total Bilirubin 0.4 (0.2-1.3) mg/dL AST 26 (14-36) U/L ALT 22 (6-35) U/L Alkaline Phosphatase 52 (38-126) U/L Total Protein 7.0 (6.3-8.2) g/dL Albumin 4.7 (3.5-5.1) g/dL Lipase 291 (23-300) U/L Urine Color Yellow (Yellow) Urine Appearance Cloudy H (Clear) Urine pH 5.5 (5.0-9.0) Ur Specific [place] 1.014 (1.001-1.035) Urine Protein Negative (Negative) mg/dL Urine Glucose (UA) Negative (Negative) mg/dL Urine Ketones Negative (Negative) mg/dL Ur Blood (Man) Trace (Negative) Urine Nitrate Negative (Negative) Urine Bilirubin Negative (Negative) Urine Urobilinogen 0.2 (<2.0) mg/dL Add Ur Microanalysis Reviewed Leukocyte Esterase Rfl Negative (Negative) RODOLFO/UL Urine RBC 3-5 H (0-2) /hpf Urine WBC 11-20 H (0-3) /hpf Ur Squamous Epith Cells Few (Few) /hpf Urine Bacteria 2+ H /hpf Urine Casts 3-5 POC Urine HCG, Qual Negative (Negative) <Marcus Giron MD - Last Filed: 11/15/24 15:09> Imaging Data Radiologist's impression: ITS Impressions Abdomen/Pelvis CT 11/15/24 14:13 IMPRESSION: 1. Fluid in the small bowel and proximal colon consistent with nonspecific diarrhea. No other acute intra-abdominal/pelvic process. Specifically the appendix is normal. Pelvic/Transvag US 11/15/24 14:26 IMPRESSION: Nabothian cysts in the cervix. Echogenic foci in the lower uterine segment most likely calcification. Left ovarian follicle. Otherwise, normal pelvic ultrasound. <Marylou Gonzalez PA-C - Last Filed: 11/15/24 12:49> ITS Impressions Abdomen/Pelvis CT 11/15/24 14:13 IMPRESSION: 1. Fluid in the small bowel and proximal colon consistent with nonspecific diarrhea. No other acute intra-abdominal/pelvic process. Specifically the appendix is normal. Pelvic/Transvag US 11/15/24 14:26 IMPRESSION: Nabothian cysts in the cervix. Echogenic foci in the lower uterine segment most likely calcification. Left ovarian follicle. Otherwise, normal pelvic ultrasound. <Marcus Giron MD - Last Filed: 11/15/24 15:09> Discharge Plan Discharge Clinical Impression: UTI (urinary tract infection), Abdominal wall pain <Marylou Gonzalez PA-C - Last Filed: 11/15/24 12:49> Patient Disposition: Home, Self-Care <Marylou Gonzalez PA-C - Last Filed: 11/15/24 12:49> Condition: Stable <Marylou Gonzalez PA-C - Last Filed: 11/15/24 12:49> Instructions: Urinary Tract Infection in Women (ED) <Marylou Gonzalez PA-C - Last Filed: 11/15/24 12:49> Additional Instructions: Return to the emergency department if you develop severe abdominal pain, severe nausea and vomiting to the point where you are unable to keep down fluids, if you develop chest pain or difficulty breathing, blood in your stool, dizziness or fainting, or if you develop any other new or concerning symptoms as these could be signs of more serious medical illness. Try to stay well hydrated. <Marylou Gonzalez PA-C - Last Filed: 11/15/24 12:49> Patient Language: [place] <Marylou Gonzalez PA-C - Last Filed: 11/15/24 12:49> Prescriptions: New cephalexin 500 mg capsule 500 mg PO Q12H Qty: 14 0RF No Action cyclobenzaprine 10 mg tablet 10 mg PO TID PRN (Reason: muscle spasm) Qty: 20 0RF Aurovela 24 Fe 1 mg-20 mcg (24)/75 mg (4) tablet 1 tablet PO DAILY baclofen 10 mg tablet 10 mg PO TID PRN (Reason: muscle pain) Qty: 10 0RF prednisone 50 mg tablet 50 mg PO DAILY Qty: 7 0RF <Marylou Gonzalez PA-C - Last Filed: 11/15/24 12:49> Follow-up/Referrals: Magen,Rosaura Howell MD [Primary Care Provider] - 1 Week <Marylou Gonzalez PA-C - Last Filed: 11/15/24 12:49>
[2024-11-15 14:29] VITALS: BP 107/78; PULSE 70; RESP 16; O2SAT 99
[2024-11-15 15:33] VITALS: BP 110/80; PULSE 75; RESP 16; O2SAT 98
== END 2024-11-15 15:37 | disposition home or self-care (01) ==
PROVIDERS: Emergency Provider Emergency Medicine; PCP Hospitalist
DX: N39.0 Urinary tract infection, site not specified (principal); R10.31 Right lower quadrant pain; F17.210 Nicotine dependence, cigarettes, uncomplicated
CPT/HCPCS: 36415; 74177; 76830; 76856; 80053; 81001; 81025; 83690; 85025; 87086; 99284; Q9967

== ENCOUNTER 2025-04-17 10:10 | Emergency (ER) | payer OTHER, SELFPAY ==
[2025-04-17 10:14] VITALS: BP 118/79; PULSE 79; RESP 16; TEMP 36.6; O2SAT 100
--- NOTE | 2025-04-17 10:37 | ED_ITS ---
HPI - Skin/Abscess/Foreign Bdy General Chief complaint: Skin/Abscess/Foreign Body Stated complaint: bumps on left bottom Time Seen by Provider: 04/17/25 10:20 Source: patient and RN notes reviewed Mode of arrival: ambulatory Limitations: no limitations History of Present Illness HPI narrative: 44-year-old female presents Express Care complaining of rash to left buttocks for 2 days. Patient says she has a history of shingles and said the rash was in the same area last time. Patient had shingles when she was . Patient reports initially started as a tingling and itchy sensation to the left lower box and reported having headaches. Since then she has noticed a papular rash that is tender and reports a burning sensation when she scratches it. Patient denies any fevers, body aches, chills, nausea, vomiting vision problems, hearing problems, discharge, or any other symptoms. Patient denies any significant past medical history. Related Data Home Medications ?Medication ?Instructions ?Recorded ?Confirmed ?Last Taken ?Type norethindrone 1 mg-ethinyl 1 tablet PO DAILY 05/04/21 05/11/23 Unknown History estradiol 20 mcg (24)-iron 75 mg (4) tablet (Aurovela 24 Fe) Allergies Allergy/AdvReac Type Severity Reaction Status Date / Time alprazolam Allergy Unknown Verified 04/17/25 10:22 naproxen Allergy Wheezing Verified 04/17/25 10:22 Review of Systems Review of Systems: CONSTITUTIONAL: Denies fever, chills, or sweats. EYES: Denies visual changes, redness, or discharge. ENT: Denies rhinorrhea, congestion, sore throat, or otalgia. CARDIOVASCULAR: Denies chest pain, palpitations, or edema. RESPIRATORY: Denies cough or dyspnea. GASTROINTESTINAL: Denies abdominal pain, nausea, vomiting, or diarrhea. GENITOURINARY: Denies dysuria or hematuria. SKIN: Positive for rash and itching. MUSCULOSKELETAL: Denies back pain, joint pain, or myalgia. NEUROLOGIC: Denies headache, numbness, or weakness. PSYCHIATRIC: Denies anxiety or depression. All other systems reviewed are negative, except as documented in HPI. [facility] Past Medical History Medical History COVID-19 Lupus Bipolar disorder Surgical History Surgical History No history of previous surgery Family History Family History Grandparent Heart disease Diabetes mellitus Cerebrovascular accident Mother Hypertension Social History Social History Smoking packs per day: 0.5 Smoking cigarettes per day: 10.0 Years smoked: 20 Smoking pack-years: 10.00 Smoking status: Current every day smoker Alcohol intake: current Substance use: never Substance use type: marijuana Living arrangements: with family Gender identity (if verbalized by the patient): Female Comments At the time of my signature, I reviewed and agree with the nursing past medical, surgical, social, and family history. There is no relevant family history pertinent to the patient complaint. Exam Narrative: GENERAL: This is a well-nourished, well-developed adult, in no apparent distress. They are non ill-appearing, nontoxic appearing. HEAD: normocephalic, atraumatic. EYES: Sclera clear/white. Conjunctiva normal. Vision is grossly intact. Extraocular movements intact EARS: External ears normal, Hearing grossly intact. NOSE: External nose normal THROAT: Mucous membranes moist, NECK: Neck supple, CARDIOVASCULAR: Regular rate and rhythm RESPIRATORY: Respiratory rate normal, respiratory effort nonlabored, no respir atory distress SKIN: Left buttocks: There is a linear erythematous papular rash appears to follow a single dermatome. Approximately 2 cm long by 0.5 cm wide. There is a pustule present in rash. Rash is tender to palpate. No vesicles or exudate. No induration, area of fluctuance. NEURO: awake, alert, and oriented to person, place and time. There were no obvious focal neurologic abnormalities. EXTREMITIES: No joint tenderness, effusion, or edema noted. Course Course Emergency Course: Portions of this record may have been created with voice recognition software Level of Care: Express Care Visit Vital Signs Vital signs: Vital Signs Temperature 97.9 F 04/17/25 10:14 Pulse Rate 79 04/17/25 10:14 Respiratory Rate 16 04/17/25 10:14 Blood Pressure 118/79 04/17/25 10:14 Pulse Oximetry 100 04/17/25 10:14 Oxygen Delivery Room Air 04/17/25 10:14 Temperature 97.9 F 04/17/25 10:14 Pulse Rate 79 04/17/25 10:14 Respiratory Rate 16 04/17/25 10:14 Blood Pressure 118/79 04/17/25 10:14 Pulse Oximetry 100 04/17/25 10:14 Oxygen Delivery Room Air 04/17/25 10:14 Reviewed MDM - Skin/Abscess/Foreign Bdy MDM Narrative Medical decision making narrative: Patient's buttocks was examined with tightening machine operator with Alissa Moreno RN present in the room. Given patient's symptoms history of shingles to the same area it is possible she may be developing a shingles rash. Will prescribe valacyclovir for treatment. Given presence of pustule, also prescribe mupirocin to cover in a bacterial infection. There is no induration, skin is not hot to touch. Discussed physical exam findings. Advised supportive measures and signs/symptoms to go to the ER. Pt is appropriate for outpt treatment and f/u. Differential Diagnosis Differential diagnosis: Likely abscess of skin or subcutaneous tissue, dermatophytosis, herpes zoster and cellulitis Critical Care Time Critical Care Time Critical Care Time: No Discharge Plan Discharge Clinical Impression: Herpes zoster Qualifiers: Herpes zoster complications: without complications Qualified Code(s): B02.9 - Zoster without complications Patient Disposition: Home Condition: Stable Instructions: Shingles (ED) Additional Instructions: Take the valacyclovir as directed. Apply mupirocin ointment to the affected area as directed. You may take Tylenol or ibuprofen as needed for pain or fevers. Your no longer contagious when the lesions crust over. Keep the rash covered to prevent the spread of infection. Shingles will normally resolve within 7-10 days. If you develops any worsening redness, swelling, discharge, vision problems, fevers, or red streaking, or any other concerns please go to the ER immediately. Patient Language: Italian Prescriptions: New valacyclovir 1 gram tablet 1,000 mg PO TID 7 Days Qty: 21 0RF mupirocin calcium 2 % cream 1 applic topical BID 7 Days Qty: 30 0RF No Action cyclobenzaprine 10 mg tablet 10 mg PO TID PRN (Reason: muscle spasm) Qty: 20 0RF Aurovela 24 Fe 1 mg-20 mcg (24)/75 mg (4) tablet 1 tablet PO DAILY baclofen 10 mg tablet 10 mg PO TID PRN (Reason: muscle pain) Qty: 10 0RF prednisone 50 mg tablet 50 mg PO DAILY Qty: 7 0RF cephalexin 500 mg capsule 500 mg PO Q12H Qty: 14 0RF Follow-up/Referrals: Mahendra,Rebeca Parks AUTOMOBILE MECHANIC HELPER [Primary Care Provider] - Time of Disposition: 10:34
== END 2025-04-17 10:35 | disposition home or self-care (01) ==
PROVIDERS: PCP Nurse Practitioner
DX: B02.9 Zoster without complications (principal); F17.210 Nicotine dependence, cigarettes, uncomplicated
CPT/HCPCS: 99213; G0463

== ENCOUNTER 2025-07-22 08:12 | Emergency (ER) | payer OTHER, SELFPAY ==
--- NOTE | 2025-07-22 08:18 | ED.GENADULT ---
HPI - General Adult General Chief complaint: Skin/Abscess/Foreign Body Stated complaint: red swollen spot on left leg Time Seen by Provider: 07/22/25 08:18 Source: patient Mode of arrival: ambulatory Limitations: no limitations History of Present Illness HPI narrative: 44-year-old female patient presents to the [facility] with complaints of a bite to the left inner thigh x2 days. Patient denies any fevers body aches or chills. Patient states that the bite area has been itchy and burning. Patient states she did take some Benadryl and is applying alcohol, Neosporin to the area. Related Data Home Medications ?Medication ?Instructions ?Recorded ?Confirmed ?Last Taken ?Type norethindrone 1 mg-ethinyl 1 tablet PO DAILY 05/04/21 05/11/23 Unknown History estradiol 20 mcg (24)-iron 75 mg (4) tablet (Aurovela 24 Fe) Allergies Allergy/AdvReac Type Severity Reaction Status Date / Time alprazolam Allergy Unknown Verified 07/22/25 08:17 naproxen Allergy Wheezing Verified 07/22/25 08:17 Review of Systems Review of Systems: CONSTITUTIONAL: Denies fever, chills, or sweats. EYES: Denies visual changes, redness, or discharge. ENT: Denies rhinorrhea, congestion, sore throat, or otalgia. CARDIOVASCULAR: Denies chest pain, palpitations, or edema. RESPIRATORY: Denies cough or dyspnea. GASTROINTESTINAL: Denies abdominal pain, nausea, vomiting, or diarrhea. GENITOURINARY: Denies dysuria or hematuria. SKIN: Denies rash or itching. Positive insect bite to left inner thigh x2 days MUSCULOSKELETAL: Denies back pain, joint pain, or myalgia. NEUROLOGIC: Denies headache, numbness, or weakness. PSYCHIATRIC: Denies anxiety or depression. [facility] Past Medical History Medical History COVID-19 Lupus Bipolar disorder Surgical History Surgical History No history of previous surgery Family History Family History Grandparent Heart disease Diabetes mellitus Cerebrovascular accident Mother Hypertension Social History Social History Smoking packs per day: 0.5 Smoking cigarettes per day: 10.0 Years smoked: 20 Smoking pack-years: 10.00 Smoking status: Current every day smoker Alcohol intake: current Substance use: never Substance use type: marijuana Living arrangements: with family Gender identity (if verbalized by the patient): Female Comments At the time of my signature I agree with nursing past medical history, surgical, social, and family history. There is no relevant family history pertinent to the presenting complaint. Exam Narrative: GENERAL: Well-appearing, well-nourished, and in no acute distress. HEAD: Normocephalic, atraumatic. EYES: PERRLA and EOMI. ENT: Nares clear, no rhinorrhea or epistaxis. Mucous membranes moist. NECK: Supple. No lymphadenopathy CHEST: Clear to auscultation. No respiratory distress. HEART: Regular rate and rhythm. No murmur heard. Normal peripheral pulses. ABDOMEN: Soft, nontender, nondistended, normal active bowel sounds. EXTREMITIES: Normal range of motion. No edema. SKIN: Warm, dry, no rash. Patient has what appears to be failing conroy noted to the left inner thigh with very mild surrounding erythema no warmth present. No discharge present. There is no streaking up or down the leg no concerns for a cellulitis infection at this time. NEURO: No focal deficits. Alert and oriented x3. Course Course Level of Care: Express Care Visit Vital Signs Vital signs: Vital signs reviewed. Medical Decision Making MDM Narrative Medical decision making narrative: Plan of care for patient is discharge home with a prescription for topical antibiotic ointment. Encouraged patient to continue to clean the area with regular soap water, applied antibiotic ointment and cover with a Band-Aid to decrease risk of scratching the area and making the infection worse. Discussed with patient to continue taking antihistamines such as Zyrtec and Benadryl. Discussed with patient to watch for worsening signs of infection including fevers, body aches, chills streaking up or down the leg or the area being very warm to the touch. If any of these occur she needs to either come back here or see her primary doctor for further evaluation. Patient verbalized understanding of this and denies any other questions or concerns at this time. Differential Diagnosis Differential Diagnosis: Differential diagnosis: Abscess, cellulitis, hidradenitis, laceration, puncture wound. Critical Care Time Critical Care Time Critical Care Time: No Discharge Plan Discharge Clinical Impression: Insect bite (nonvenomous), left thigh, initial encounter Patient Disposition: Home Condition: Stable Instructions: Antibiotic Form, Insect Bite or Sting (ED) Additional Instructions: Wash the area with soap water, pat dry. Apply the antibiotic ointment that was prescribed 2 today and keep covered with a Band-Aid to decrease the risk of you scratching it and opening up the wound. Watch for worsening signs symptoms of infection including red streaks going up or down the leg, warmth to the area, increase in pain, fevers body aches or chills. If any of these occur please follow-up with your primary doctor over the ER for further evaluation. Patient Language: Citizen Of [place] Prescriptions: New mupirocin [Centany] 2 % ointment 1 applic topical BID Qty: 22 0RF No Action Aurovela 24 Fe 1 mg-20 mcg (24)/75 mg (4) tablet 1 tablet PO DAILY Follow-up/Referrals: Mahendra,Rebeca Parks [employer] [Primary Care Provider, [facility]] Time of Disposition: 08:32
[2025-07-22 08:20] VITALS: BP 112/70; PULSE 80; RESP 20; TEMP 36.8; O2SAT 100
== END 2025-07-22 08:42 | disposition home or self-care (01) ==
PROVIDERS: Emergency Provider Nurse Practitioner Family; PCP Nurse Practitioner
DX: S70.362A Insect bite (nonvenomous), left thigh, initial encounter (principal); W57.XXXA Bitten or stung by nonvenomous insect and other nonvenomous arthropods, initial encounter; F17.210 Nicotine dependence, cigarettes, uncomplicated; Z86.16 Personal history of COVID-19
CPT/HCPCS: 99213; G0463

== ENCOUNTER 2025-09-05 08:26 | Emergency (ER) | payer OTHER, SELFPAY ==
[2025-09-05 08:33] VITALS: BP 115/82; PULSE 82; RESP 18; TEMP 36.9; O2SAT 100
--- NOTE | 2025-09-05 09:14 | ED.URI ---
HPI - URI/Sore Throat General Chief Complaint: Upper Respiratory Infection Stated Complaint: sinus congestion Time Seen by Provider: 09/05/25 09:14 Source: patient Mode of arrival: ambulatory Limitations: no limitations History of Present Illness HPI Narrative: 44-year-old female presents with complaint of nasal congestion, sinus pressure, bilateral ear pain. Symptoms for 6 days. Afebrile. Left ear pain worse than right. Taking Claritin D and Mucinex. All systems reviewed and negative except as noted above. Related Data Home Medications ?Medication ?Instructions ?Recorded ?Confirmed ?Last Taken ?Type norethindrone 1 mg-ethinyl 1 tablet PO DAILY 05/04/21 05/11/23 Unknown History estradiol 20 mcg (24)-iron 75 mg (4) tablet (Aurovela 24 Fe) Allergies Allergy/AdvReac Type Severity Reaction Status Date / Time alprazolam Allergy Unknown Verified 09/05/25 08:55 naproxen Allergy Wheezing Verified 09/05/25 08:55 COUNT INCLUDES THE [facility] Past Medical History Medical History COVID-19 Lupus Bipolar disorder Surgical History Surgical History No history of previous surgery Family History Family History Grandparent Heart disease Diabetes mellitus Cerebrovascular accident Mother Hypertension Social History Social History Smoking packs per day: 0.5 Smoking cigarettes per day: 10.0 Years smoked: 20 Smoking pack-years: 10.00 Alcohol intake: current Substance use: never Substance use type: marijuana Living arrangements: with family Gender identity (if verbalized by the patient): Female Comments At time of signature, agree with nursing past medical, surgical, social and family history. There is no relevant family history pertinent to the presenting complaint. Exam Narrative: GENERAL: This is a well-nourished, well-developed patient, in no apparent distress. HEAD: normocephalic, atraumatic. EYES: PERRL. Sclera clear/white. Vision is grossly intact. EARS: External ears normal, auditory canals clear and without drainage, Yellow fluid bilateral TMs, worse to left TM with erythema Hearing grossly intact. NOSE: External nose normal with congestion, purulent nasal drainage, erythema to bilateral nares THROAT: Mucous membranes moist, postnasal drainage without erythema swelling or exudates NECK: Neck supple, non-tender without lymphadenopathy, masses or thyromegaly. CARDIOVASCULAR: Regular rate and rhythm without murmurs, gallops, or rubs. RESPIRATORY: Clear to auscultation. Breath sounds equal bilaterally. No wheezes, rales, or rhonchi. SKIN: warm, Dry, intact with no suspicious lesions or rash, good texture and turgor. NEURO: awake, alert, and oriented to person, place and time. There were no obvious focal neurologic abnormalities. EXTREMITIES: No joint tenderness, effusion, or edema noted. Course Course Level of Care: Express Care Visit Vital Signs Vital signs: Vital Signs Temperature 36.9 C 09/05/25 08:33 Pulse Rate 82 09/05/25 08:33 Respiratory Rate 18 09/05/25 08:33 Blood Pressure 115/82 09/05/25 08:33 Pulse Oximetry 100 09/05/25 08:33 Oxygen Delivery Room Air 09/05/25 08:33 Temperature 36.9 C 09/05/25 08:33 Pulse Rate 82 09/05/25 08:33 Respiratory Rate 18 09/05/25 08:33 Blood Pressure 115/82 09/05/25 08:33 Pulse Oximetry 100 09/05/25 08:33 Oxygen Delivery Room Air 09/05/25 08:33 reviewed MDM - URI/Sore Throat MDM Narrative Medical decision making narrative: will treat patient with antibiotic for bilateral serous otitis media. Recommend she start an [id number] Flonase or Nasacort, continue Claritin D. Will follow up with primary care physician as needed. Patient is well-appearing, nontoxic. Differential Diagnosis Differential diagnosis: Likely upper respiratory infection, otitis media and sinusitis Discharge Plan Discharge Clinical Impression: Acute sinusitis, Acute serous otitis media of both ears Patient Disposition: Home Condition: Stable Instructions: Antibiotic Form, Fluid In The Ear (Serous Otitis Media) (ED) Additional Instructions: Take antibiotic as prescribed until gone. Continue [id number] Claritin D as directed on packaging. Start a nasal spray such as Nasacort or Flonase and take as directed on packaging. Drink at least 64 oz of water a day. See your doctor if not improving. Patient Language: [place]ian Prescriptions: New amoxicillin-pot clavulanate 875-125 mg tablet 1 tablet PO Q12H 10 Days Qty: 20 0RF No Action mupirocin [Centany] 2 % ointment 1 applic topical BID Qty: 22 0RF Aurovela 24 Fe 1 mg-20 mcg (24)/75 mg (4) tablet 1 tablet PO DAILY Follow-up/Referrals: Mahendra,Rebeca Parks NP [Primary Care Provider, Family Practice] Time of Disposition: 09:20
== END 2025-09-05 09:26 | disposition home or self-care (01) ==
PROVIDERS: Emergency Provider Nurse Practitioner Family; PCP Nurse Practitioner
DX: J01.90 Acute sinusitis, unspecified (principal); H65.93 Unspecified nonsuppurative otitis media, bilateral; F17.210 Nicotine dependence, cigarettes, uncomplicated
CPT/HCPCS: 99213; G0463